=== PATIENT | male | born 1935 | race Caucasian/White ===

== ENCOUNTER 2017-01-06 00:17 | Inpatient (IN) | payer OTHER, MEDICARE ==
[~2017-01-06] VITALS: Ht 188 cm; Wt 84.7 kg
[~2017-01-06 00:17] MED LIST: AZIT250T74 PO; BUME1TAB PO; CARB200 PO; CLON1 PO; COMBAER INH; COUM6TAB PO; FLUO20SO3 PO; GUAI600 PO; LACT PO; MYCO200S PO; OMEP20CA5 PO; PRED20 PO; PROG1CAP PO; ROBIACUDC PO
[2017-01-06 00:53] VITALS: BP 180/79; PULSE 58; RESP 18; TEMP 98.3; O2SAT 98
[2017-01-06] MEDS ORDERED: OLANZapine ODT 10 MG TAB PO ONE (01:30)
[2017-01-06] MEDS ORDERED: CARB200T PO (01:38)
[2017-01-06] MEDS ORDERED: BUME1TAB PO (01:38)
[2017-01-06] MEDS ORDERED: PRAV80TA2 PO (01:38)
[2017-01-06] MEDS ORDERED: REST30CA PO (01:41)
[2017-01-06] MEDS ORDERED: TACR5 PO (01:41)
[2017-01-06] MEDS ORDERED: MYCO500 PO (01:41)
[2017-01-06] MEDS ORDERED: PRED-503 PO (01:41)
[2017-01-06] MEDS ORDERED: WARF-60 PO (01:41)
[2017-01-06] MEDS ORDERED: CLON1 PO (01:41)
[2017-01-06] MEDS ORDERED: FLUO20CA12 PO (01:41)
[2017-01-06 02:10] LABS: AUTOMATED NEUTROPHIL # 2.6 TH/MM3 (1.8-7.7); BASOPHIL % 0.4 % (0.0-2.0); EOSINOPHIL # 0.1 TH/MM3 (0-0.4); HEMATOCRIT 35.2 % (39.0-51.0); HEMO FLAGS DIFF FINAL; LYMPH % 17.8 % (9.0-44.0); LYMPHOCYTE # 0.7 TH/MM3 (1.0-4.8); MEAN CELL VOLUME 92.2 FL (80.0-100.0); MEAN CORPUSCULAR HEMOGLOBIN 29.6 PG (27.0-34.0); MONO % 14.7 % (0.0-8.0); NEUT % 65.1 % (16.0-70.0); PLATELET COUNT 160 TH/MM3 (150-450); RED BLOOD COUNT 3.82 MIL/MM3 (4.50-5.90); RED CELL DISTRIBUTION WIDTH 14.4 % (11.6-17.2); WHITE BLOOD COUNT 3.9 TH/MM3 (4.0-11.0)
--- NOTE | 2017-01-06 02:20 | PD ---
HPI Chief Complaint: Psychiatric Symptoms Time Seen by Provider: 00:43 Travel History International Travel<30 days: No Contact w/Intl Traveler<30days: No Traveled to known affect area: No History of Present Illness HPI Patient is a 81-year-old male with history of paranoid schizophrenia and depression who presents the emergency department under Beavers act. Per patient' s and daughter, whom is a nurse, patient has history of depression and paranoid schizophrenia. He has been compliant with all medications including Prozac, Klonopin and carbamazepine. Patient has been decompensating over the course of the last several weeks to months with increasing spells of agitation. He today woke up confused and has been acting "like a different person" per family. Stated that he wanted to hurt his and has been making very aggressive statements towards her. Stated to family that he wanted to kill himself. He wrote a note stating his wishes, for what family were supposed to do with his body when he passes away, describing that he wanted to be cremated. Patient has been having a fairly fixed delusion that his has been cheating on him and is "a whore" per patient. and daughter states that this has been a fairly fixed delusion for years but has been more bothersome as of late. Patient does have a history of renal transplant and is followed by Dr. Gonsalez of nephrology. He has been compliant with his antirejection medications. PFSH Past Medical History Autoimmune Disease: No Blood Disorders: No Anxiety: Yes Depression: Yes Heart Rhythm Problems: Yes (AT FIB) Cancer: Yes Cardiac Catheterization: Yes Cardiovascular Problems: Yes High Cholesterol: Yes Chest Pain: Yes Congestive Heart Failure: No COPD: Yes Coronary Artery Disease: Yes Diabetes: No Diminished Hearing: No Endocrine: No Gastrointestinal Disorders: Yes Glaucoma: No Genitourinary: Yes Headaches: Yes Hepatitis: No Hypertension: Yes Immune Disorder: No Musculoskeletal: No Neurologic: Yes Psychiatric: Yes Reproductive: No Respiratory: Yes Migraines: No Myocardial Infarction: No Radiation Therapy: Yes Renal Failure: Yes Seizures: Yes Sleep Apnea: Yes Tetanus Vaccination: Unknown PNEUMOCCOCAL Vaccine (Year): 1 Past Surgical History Abdominal Surgery: Yes Arteriovenous Shunt: No Body Medical Devices: AV FISTULA LEFT BICEP Cardiac Surgery: Yes (stent placement) Coronary Stent: Yes (SEES DR CALLEJAS) Genitourinary Surgery: Yes (R KIDNEY TRANSPLANT) Gynecologic Surgery: No Insulin Pump: No Neurologic Surgery: Yes Pacemaker: No Thoracic Surgery: No Other Surgery: Yes (Left AV fistula removed) Social History Alcohol Use: No Tobacco Use: No Substance Use: No Allergies-Medications (Allergen,Severity, Reaction): Coded Allergies: Levaquin (Verified Allergy, Severe, ANAPHYLAXIS, 01/06/17) Reported Meds & Prescriptions Reported Meds & Active Scripts Active Reported Warfarin 6 Mg Tab 6 Mg PO DAILY Restoril (Temazepam) 30 Mg Cap 30 Mg PO HS PRN Prograf (Tacrolimus) 5 Mg Cap 3 Mg PO BID Deltasone (Prednisone) 20 Mg Tab 5 Mg PO DAILY Cellcept (Mycophenolate Mofetil) 500 Mg Tab 1,000 Mg PO BID Fluoxetine (Fluoxetine HCl) 20 Mg Capsule 20 Mg PO DAILY Klonopin (Clonazepam) 1 Mg Tab 1 Mg PO DAILY Carbamazepine 200 Mg Tab 200 Mg PO DAILY Bumetanide 1 Mg Tab 1 Mg PO DAILY Pravastatin 80 Mg Tab 80 Mg PO DAILY Review of Systems Except as stated in HPI: all other systems reviewed are Neg Physical Exam Narrative GENERAL: Well-appearing Chinese elderly male in no acute distress SKIN: Focused skin assessment warm/dry. HEAD: Normocephalic. EYES: No scleral icterus. No injection or drainage. ENT: Mucous membranes pink and moist. NECK: Supple CARDIOVASCULAR: Regular rate and rhythm. RESPIRATORY: No accessory muscle use. GASTROINTESTINAL: Abdomen soft, non-tender, nondistended. MUSCULOSKELETAL: Normal gait NEUROLOGICAL: Awake and alert. Motor grossly within normal limits. Normal speech. PSYCHIATRIC: Euthymic mood and affect. Patient denies delusions, hallucinations , suicidal or homicidal ideation. Data Data Last Documented VS Vital Signs Date Time Temp Pulse Resp B/P Pulse Ox O2 Delivery O2 Flow Rate FiO2 01/06/17 00:53 98.3 58 18 180/79 98 Orders Complete Blood Count With Diff (01/06/17 00:44) Comprehensive Metabolic Panel (01/06/17 00:44) Thyroid Stimulating Hormone (01/06/17 00:44) Urinalysis - C+S If Indicated (01/06/17 00:44) Psych Screen (01/06/17 00:44) Drug Screen, Random Urine (01/06/17 00:44) Alcohol (Ethanol) (01/06/17 00:44) Olanzapine Odt (Zyprexa Zydis Odt) (01/06/17 01:30) Diet Regular Basic (01/06/17 Breakfast) Labs Laboratory Tests Test 01/06/17 01:51 White Blood Count 3.9 TH/MM3 Red Blood Count 3.82 MIL/MM3 Hemoglobin 11.3 GM/DL Hematocrit 35.2 % Mean Corpuscular Volume 92.2 FL Mean Corpuscular Hemoglobin 29.6 PG Mean Corpuscular Hemoglobin 32.0 % Concent Red Cell Distribution Width 14.4 % Platelet Count 160 TH/MM3 Mean Platelet Volume 8.7 FL Neutrophils (%) (Auto) 65.1 % Lymphocytes (%) (Auto) 17.8 % Monocytes (%) (Auto) 14.7 % Eosinophils (%) (Auto) 2.0 % Basophils (%) (Auto) 0.4 % Neutrophils # (Auto) 2.6 TH/MM3 Lymphocytes # (Auto) 0.7 TH/MM3 Monocytes # (Auto) 0.6 TH/MM3 Eosinophils # (Auto) 0.1 TH/MM3 Basophils # (Auto) 0.0 TH/MM3 CBC Comment DIFF FINAL Differential Comment Sodium Level 136 MEQ/L Potassium Level 3.9 MEQ/L Chloride Level 98 MEQ/L Carbon Dioxide Level 30.2 MEQ/L Anion Gap 8 MEQ/L Blood Urea Nitrogen 26 MG/DL Creatinine 1.31 MG/DL Estimat Glomerular Filtration 53 ML/MIN Rate Random Glucose 81 MG/DL Calcium Level 8.6 MG/DL Total Bilirubin 0.4 MG/DL Aspartate Amino Transf 16 U/L (AST/SGOT) Alanine Aminotransferase 13 U/L (ALT/SGPT) Alkaline Phosphatase 63 U/L Total Protein 7.2 GM/DL Albumin 3.6 GM/DL Thyroid Stimulating Hormone 1.630 uIU/ML 3rd Gen Ethyl Alcohol Level LESS THAN 3 MG/DL [facility] Medical Decision Making Medical Screen Exam Complete: Yes Emergency Medical Condition: Yes Medical Record Reviewed: Yes Differential Diagnosis 81-year-old male with history of depression and paranoid schizophrenia here as a Beavers act for increasing confusion, aggressive statements towards , delusions and statements of one in to kill himself, writing the note about his end-of-life wishes. Differential includes depression, suicidal ideation, dementia, schizophrenia, paranoid schizophrenia, drug-induced mood disorder, delirium Narrative Course Patient placed on monitor. Patient very cooperative throughout emergency department stay, however when his and daughter are present patient becomes quite agitated, yelling "they are all lying. She is a whore." Once family removed we were able to verbally de-escalate patient. He was given 10 mg of oral zydis. CBC, CMP, TSH, blood alcohol level unremarkable. Urinalysis and urine drug screen remains pending at the time this dictation. Patient medically clear for psychiatric evaluation. Diagnosis Primary Impression: Paranoid schizophrenia Additional Impression: Delusion Mariah Morris MD Jan 06, 2017 02:20
[2017-01-06 02:32] LABS: ANION GAP 8 MEQ/L (5-15); AST (GOT) 16 U/L (15-37); BICARBONATE 30.2 MEQ/L (21.0-32.0); BLOOD UREA NITROGEN 26 MG/DL (7-18); CHLORIDE 98 MEQ/L (98-107); GLOMERULAR FILTRATION RATE 53 ML/MIN (>89); POTASSIUM 3.9 MEQ/L (3.5-5.1); SODIUM (NA) 136 MEQ/L (136-145)
[2017-01-06 02:42] LABS: ALKALINE PHOSPHATASE 63 U/L (45-117); ALT (GPT) 13 U/L (12-78); TOTAL BILIRUBIN ADULT 0.4 MG/DL (0.2-1.0)
[2017-01-06 06:30] VITALS: BP 168/76; PULSE 60; RESP 20; O2SAT 96
[2017-01-06 08:39] LABS: BLOOD, URINE NEG (NEG); GLUCOSE,URINE NEG (NEG); KETONE, URINE NEG (NEG); NITRITE,URINE NEG (NEG); SQUAMOUS EPITHELIAL CELL URINE <1 /hpf (0-5); URINE COLOR LIGHT-YELLOW (YELLW/STRAW)
[2017-01-06 08:41] LABS: COMMENT (UR) CULT NOT INDICATED; CULTURE IF INDICATED CULT NOT INDICATED
[2017-01-06 08:46] LABS: AMPHETAMINE, URINE NEG (NEG); BARBITURATES, URINE NEG (NEG); COCAINE, URINE NEG (NEG)
[2017-01-06 10:00] VITALS: BP 160/72; PULSE 60; RESP 17; O2SAT 97
--- NOTE | 2017-01-06 13:45 | HHI.HP ---
Provisional Diagnosis Admission Date 01/06/2017 [place] I. 1. Adjustment disorder with disturbance of emotions and conduct Rule out dementia with behavioral disturbance +/- psychosis 2. History of schizophrenia 3. History of seizure disorder [place] II. Deferred [place] V. GAF is 20 presently Certification of Person's Competence To Provide Express and Informed Consent I have personally examined Bismark Frazier , a person being served at [facility] on, Jan 06, 2017 13:45. Express and informed consent means consent voluntarily given in writing, by a competent person, after sufficient explanation and disclosure of the subject matter involved to enable the person to make a knowing and willful decision without any element of force, fraud, deceit, duress, or other form of constraint or coercion. This person is 18 years of age or older, is not now known to be incompetent to consent to treatment with a guardian advocate, and does not have a health care surrogate or proxy currently making medical treatment decisions. I have found this person to be one of the following: [] Competent to provide express and informed consent, as defined above, for voluntary admission to this facility and is competent to provide express and informed consent for treatment. He/she has the consistent capacity to make well reasoned, willful, and knowing decisions concerning his or her medical or mental health treatment. The person fully and consistently understands the purpose of the admission for examination/placement and is fully capable of personally exercising all rights [place] [x] Incompetent to provide express and informed consent to voluntary admission, and this is incompetent to provide express and informed consent to treatment. The person must be transferred to involuntary status and a petition for a guardian advocate filed with the Circuit Court. [] Refusing to provide express and informed consent to voluntary admission but is competent to provide express and informed consent for treatment. The person must be discharged or transferred to involuntary status. Form shall be completed within 24 hours of a person's arrival at the receiving facility and filed in the clinical record of each person: 1. Admitted on a voluntary basis 2. Permitted to provide express and informed consent to his/her own treatment 3. Allowed to transfer from involuntary to voluntary status 4. Prior to permitting a person to consent to his or her own treatment after having been previously found incompetent to consent to treatment. History of Present Illness Capacity: Lacks Capacity HPI Mr. Frazier is an 81-year-old male [place] descent who has been brought into the ED under a Beavers act alleging that he made threats to suicide. Reviewing the electronic medical record, I see no prior psychiatric contact within our system. Patient seen and examined. Chart reviewed. On my examination today, the patient tends to minimize the circumstances of his presentation here. He says that he was making funerary arrangements and his misinterpreted what he was doing. He denies any suicidal ideation or homicidal ideation. He denies any audiovisual hallucinations. I can elicit no delusional beliefs. He does admit to feeling depressed from time to time but denies persistent low mood. No hypomanic or manic symptoms. The remainder of the psychiatric ROS is negative. Past psychiatric history: Patient reports that after the onset of seizure disorder he was started on Prozac and Klonopin for low mood. He denies a history of suicide attempts. Family history: Patient denies family history of mental illness. Chemical dependency history: The patient denies any abuse of drugs or alcohol. Social history: The patient is originally from [facility]. He lives with his . He has a high school equivalent education. He worked in construction. Denies any or legal history. He reports that he has a son and daughter , and that his daughter works here as a nurse. Obtain collateral from the patient's daughter, Suzi. She reports that the patient has a history of schizophrenia and seizure disorder, although the schizophrenia was diagnosed relatively late in life. She notes that after his seizures he will experience violent behavior, although he has been experiencing more generalized behavioral disturbance lately. She says that morning he took a seizure and was subsequently confused. He has been accusing his of having a boyfriend. He has been threatening to kill his and then himself. Daughter remains concerned about the patient's behavior and risk for suicide/violence. Review of Systems ROS Limitations: Poor Historian Except as stated in HPI: all other systems reviewed are Neg Past Psych History Psychological trauma history No reported trauma history Violence risk - others (6 mos) Indeterminate. Concern for elevated risk. Violence risk - self (6 mos) Indeterminate. Concern for elevated risk. Substance Abuse History Drugs/Alcohol past 12 months See above Past Family Social History Coded Allergies: Levaquin (Verified Allergy, Severe, ANAPHYLAXIS, 01/06/17) Past Medical History See electronic medical record Reported Medications Warfarin 6 Mg Tab6 Mg PO DAILY #30 TAB Ref 0 01/06/17 Temazepam (Restoril)30 Mg Cap30 Mg PO HS PRN (INSOMNIA) #30 CAP Ref 0 01/06/17 Tacrolimus (Prograf)5 Mg Cap3 Mg PO BID #60 CAP Ref 0 01/06/17 Prednisone (Deltasone)20 Mg Tab5 Mg PO DAILY #30 TAB Ref 0 01/06/17 Mycophenolate (Cellcept)500 Mg Tab1,000 Mg PO BID #120 TAB Ref 0 01/06/17 Fluoxetine 20 Mg [id number] Mg PO DAILY #30 CAP Ref 0 01/06/17 Clonazepam (Klonopin)1 Mg Tab1 Mg PO DAILY #60 TAB Ref 0 01/06/17 Carbamazepine 200 Mg [id number] Mg PO DAILY #60 TAB Ref 0 01/06/17 Bumetanide 1 Mg Tab1 Mg PO DAILY #30 TAB Ref 0 01/06/17 Pravastatin 80 Mg Tab80 Mg PO DAILY #30 TAB Ref 0 01/06/17 Patient's Strengths (min. 2) In a monitored setting. Verbally fluent. Physical Exam Physical exam completed by ED provider. On my examination today, the patient appears to be in no acute physical distress. No motor abnormalities noted. Labs and vitals reviewed: Vital Signs Vital Signs Date Time Temp Pulse Resp B/P Pulse Ox O2 Delivery O2 Flow Rate FiO2 01/06/17 10:00 60 17 160/72 97 Room Air 01/06/17 00:53 98.3 Lab Results Laboratory Tests Test 01/06/17 01/06/17 01:51 08:05 White Blood Count 3.9 TH/MM3 Red Blood Count 3.82 MIL/MM3 Hemoglobin 11.3 GM/DL Hematocrit 35.2 % Mean Corpuscular Volume 92.2 FL Mean Corpuscular Hemoglobin 29.6 PG Mean Corpuscular Hemoglobin 32.0 % Concent Red Cell Distribution Width 14.4 % Platelet Count 160 TH/MM3 Mean Platelet Volume 8.7 FL Neutrophils (%) (Auto) 65.1 % Lymphocytes (%) (Auto) 17.8 % Monocytes (%) (Auto) 14.7 % Eosinophils (%) (Auto) 2.0 % Basophils (%) (Auto) 0.4 % Neutrophils # (Auto) 2.6 TH/MM3 Lymphocytes # (Auto) 0.7 TH/MM3 Monocytes # (Auto) 0.6 TH/MM3 Eosinophils # (Auto) 0.1 TH/MM3 Basophils # (Auto) 0.0 TH/MM3 CBC Comment DIFF FINAL Differential Comment Sodium Level 136 MEQ/L Potassium Level 3.9 MEQ/L Chloride Level 98 MEQ/L Carbon Dioxide Level 30.2 MEQ/L Anion Gap 8 MEQ/L Blood Urea Nitrogen 26 MG/DL Creatinine 1.31 MG/DL Estimat Glomerular Filtration 53 ML/MIN Rate Random Glucose 81 MG/DL Calcium Level 8.6 MG/DL Total Bilirubin 0.4 MG/DL Aspartate Amino Transf 16 U/L (AST/SGOT) Alanine Aminotransferase 13 U/L (ALT/SGPT) Alkaline Phosphatase 63 U/L Total Protein 7.2 GM/DL Albumin 3.6 GM/DL Thyroid Stimulating Hormone 1.630 uIU/ML 3rd Gen Ethyl Alcohol Level LESS THAN 3 MG/DL Urine Color LIGHT-YELLOW Urine Turbidity CLEAR Urine pH 7.0 Urine Specific [place] 1.010 Urine Protein NEG mg/dL Urine Glucose (UA) NEG mg/dL Urine Ketones NEG mg/dL Urine Occult Blood NEG Urine Nitrite NEG Urine Bilirubin NEG Urine Urobilinogen LESS THAN 2.0 MG/DL Urine Leukocyte Esterase NEG Urine RBC 1 /hpf Urine WBC 1 /hpf Urine Squamous Epithelial <1 /hpf Cells Microscopic Urinalysis Comment CULT NOT INDICATED Urine Opiates Screen NEG Urine Barbiturates Screen NEG Urine Amphetamines Screen NEG Urine Benzodiazepines Screen NEG Urine Cocaine Screen NEG Urine Cannabinoids Screen NEG Mental Status Examination Patient is casually dressed. Patient is well groomed. Patient is awake and alert and oriented to person, place and date. His registration is 3 out of 3 in his recall is 0 out of 3 at 3 minutes. He is able to spell the word world forwards and backwards. He is able to name 2 items and repeat a phrase. No evidence of delirium. No motor abnormalities appreciated. Speech is within normal limits for rate, tone, volume. Language and fund of knowledge perhaps somewhat reduced for age. Focus and concentration intact. Memory grossly intact on clinical exam. Mood is occasionally depressed. Affect remains full and reactive. Thought processes fairly linear. No delusions elicited. Denies audiovisual hallucinations and does not appear internally stimulated. Denies suicidal or homicidal ideation, intent, or plan. Insight and judgment unclear. Assessment & Plan Problem List: (1) Adjustment disorder with mixed disturbance of emotions and conduct ICD Code: F43.25 Assessment & Plan This is an 81-year-old male with psychiatric history as detailed above who presents under a Beavers act. The patient tends to minimize circumstances of his presentation here, but his daughter gives collateral information indicating that his behavior has been increasingly disturbed of late. He also has been making threats against himself and his . Patient has a history of schizophrenia, but this was reportedly diagnosed late in life, and he does have comorbid seizure disorder. There is some subtle signs of neurocognitive impairment. I wonder about a possible oncoming dementia with behavioral disturbance. For the time being, I will give the patient had diagnosis of adjustment disorder with disturbance of emotions and conduct. The patient requires psychiatric admission at this time for safety, observation and stabilization. Admit inpatient. Involuntary status. I completed first opinion. Consult for second opinion. Request healthcare surrogate and guardian advocate. I'll consult the hospitalist for medical management. I will continue patient's general medical medications as ordered. Consult to neurology given patient's history of seizure disorder. PT consult. Seizure and fall precautions. I will continue the patient's Prozac and Klonopin. Low-dose Ativan as needed for anxiety, Cogentin as needed for EPS, Benadryl as needed for sleep. Vitals every shift. Counselor to see. Disposition planning. Estimated length of stay : 7-9 days. Discharge Planning Pending outcome of observation Request HC Surrog/Guard Advoc?: Yes Gurinder Medley MD Jan 06, 2017 13:45
[2017-01-06 14:00] VITALS: BP 154/77; PULSE 60; RESP 19; O2SAT 97
[2017-01-06] MEDS ORDERED: ALUMINUM/MAGNESIUM/SIMETH 30 ML CUP PO PRN (15:00)
[2017-01-06] MEDS ORDERED: ACETAMINOPHEN 325 MG TAB PO PRN (15:00)
[2017-01-06] MEDS ORDERED: MAGNESIUM HYDROXIDE SUSP 30 ML CUP PO PRN (15:00)
[2017-01-06] MEDS ORDERED: LORazepam 2 MG/ML VIAL IM PRN (15:00)
[2017-01-06] MEDS ORDERED: BENZTROPINE MESYLATE 2 MG/2 ML VIAL IM PRN (15:00)
[2017-01-06] MEDS ORDERED: LORazepam 0.5 MG TAB PO PRN (15:00)
[2017-01-06 15:18] VITALS: BP 157/73; PULSE 60; RESP 12; TEMP 98
--- NOTE | 2017-01-06 16:26 | PD.CONS ---
HPI Service [facility] Consult Requested By Primary Care Physician Unknown Diagnoses: History of Present Illness Past Family Social History Allergies: Coded Allergies: Levaquin (Verified Allergy, Severe, ANAPHYLAXIS, 01/06/17) Active Ordered Medications Physical Exam Vital Signs Vital Signs Date Time Temp Pulse Resp B/P Pulse Ox O2 Delivery O2 Flow Rate FiO2 01/06/17 15:18 98.0 60 12 157/73 01/06/17 14:00 60 19 154/77 97 Room Air 01/06/17 10:00 60 17 160/72 97 Room Air 01/06/17 06:30 60 20 168/76 96 Room Air 01/06/17 00:53 98.3 58 18 180/79 98 Laboratory Laboratory Tests Test 01/06/17 01/06/17 01:51 08:05 White Blood Count 3.9 Red Blood Count 3.82 Hemoglobin 11.3 Hematocrit 35.2 Mean Corpuscular Volume 92.2 Mean Corpuscular Hemoglobin 29.6 Mean Corpuscular Hemoglobin 32.0 Concent Red Cell Distribution Width 14.4 Platelet Count 160 Mean Platelet Volume 8.7 Neutrophils (%) (Auto) 65.1 Lymphocytes (%) (Auto) 17.8 Monocytes (%) (Auto) 14.7 Eosinophils (%) (Auto) 2.0 Basophils (%) (Auto) 0.4 Neutrophils # (Auto) 2.6 Lymphocytes # (Auto) 0.7 Monocytes # (Auto) 0.6 Eosinophils # (Auto) 0.1 Basophils # (Auto) 0.0 CBC Comment DIFF FINAL Differential Comment Sodium Level 136 Potassium Level 3.9 Chloride Level 98 Carbon Dioxide Level 30.2 Anion Gap 8 Blood Urea Nitrogen 26 Creatinine 1.31 Estimat Glomerular Filtration 53 Rate Random Glucose 81 Calcium Level 8.6 Total Bilirubin 0.4 Aspartate Amino Transf 16 (AST/SGOT) Alanine Aminotransferase 13 (ALT/SGPT) Alkaline Phosphatase 63 Total Protein 7.2 Albumin 3.6 Thyroid Stimulating Hormone 1.630 3rd Gen Ethyl Alcohol Level LESS THAN 3 Urine Color LIGHT-YELLOW Urine Turbidity CLEAR Urine pH 7.0 Urine Specific [place] 1.010 Urine Protein NEG Urine Glucose (UA) NEG Urine Ketones NEG Urine Occult Blood NEG Urine Nitrite NEG Urine Bilirubin NEG Urine Urobilinogen LESS THAN 2.0 Urine Leukocyte Esterase NEG Urine RBC 1 Urine WBC 1 Urine Squamous Epithelial <1 Cells Microscopic Urinalysis Comment CULT NOT INDICATED Urine Opiates Screen NEG Urine Barbiturates Screen NEG Urine Amphetamines Screen NEG Urine Benzodiazepines Screen NEG Urine Cocaine Screen NEG Urine Cannabinoids Screen NEG Result Diagram: 01/06/1715001/06/[id number] Lorrie Borges Jan 06, 2017 16:26 muscle groups. Normal speech. Laboratory Laboratory Tests Test 01/06/17 01/06/17 01:51 08:05 White Blood Count 3.9 Red Blood Count 3.82 Hemoglobin 11.3 Hematocrit 35.2 Mean Corpuscular Volume 92.2 Mean Corpuscular Hemoglobin 29.6 Mean Corpuscular Hemoglobin 32.0 Concent Red Cell Distribution Width 14.4 Platelet Count 160 Mean Platelet Volume 8.7 Neutrophils (%) (Auto) 65.1 Lymphocytes (%) (Auto) 17.8 Monocytes (%) (Auto) 14.7 Eosinophils (%) (Auto) 2.0 Basophils (%) (Auto) 0.4 Neutrophils # (Auto) 2.6 Lymphocytes # (Auto) 0.7 Monocytes # (Auto) 0.6 Eosinophils # (Auto) 0.1 Basophils # (Auto) 0.0 CBC Comment DIFF FINAL Differential Comment Sodium Level 136 Potassium Level 3.9 Chloride Level 98 Carbon Dioxide Level 30.2 Anion Gap 8 Blood Urea Nitrogen 26 Creatinine 1.31 Estimat Glomerular Filtration 53 Rate Random Glucose 81 Calcium Level 8.6 Total Bilirubin 0.4 Aspartate Amino Transf 16 (AST/SGOT) Alanine Aminotransferase 13 (ALT/SGPT) Alkaline Phosphatase 63 Total Protein 7.2 Albumin 3.6 Thyroid Stimulating Hormone 1.630 3rd Gen Ethyl Alcohol Level LESS THAN 3 Urine Color LIGHT-YELLOW Urine Turbidity CLEAR Urine pH 7.0 Urine Specific [place] 1.010 Urine Protein NEG Urine Glucose (UA) NEG Urine Ketones NEG Urine Occult Blood NEG Urine Nitrite NEG Urine Bilirubin NEG Urine Urobilinogen LESS THAN 2.0 Urine Leukocyte Esterase NEG Urine RBC 1 Urine WBC 1 Urine Squamous Epithelial <1 Cells Microscopic Urinalysis Comment CULT NOT INDICATED Urine Opiates Screen NEG Urine Barbiturates Screen NEG Urine Amphetamines Screen NEG Urine Benzodiazepines Screen NEG Urine Cocaine Screen NEG Urine Cannabinoids Screen NEG Result Diagram: 01/06/1715001/06/17150 Lorrie Borges Jan 06, 2017 16:26
--- NOTE | 2017-01-06 17:23 | PD.CONS ---
HPI Service [facility] Hospitalists Consult Requested By Psychiatric services Reason for Consult Medical management Primary Care Physician Unknown Diagnoses: History of Present Illness Written by Lorrie Borges PA-C acting as scribe for Dr. Rowan on 01/06/17 at 16 :24. This is a 81-year-old male with a past medical history significant for paranoid schizophrenia, hypertension, atrial fibrillation on warfarin, dyslipidemia, coronary artery disease status post previous cardiac stent implants, history of prostate cancer status post radiation therapy, seizures and obstructive sleep apnea who presented to the ED under Beavers act due to increasing spells of agitation and confusion and making aggressive statements towards his that he wish to hurt her and that he wanted to kill himself. Patient is now admitted to the inpatient psychiatric unit and hospitalist services have been consulted for medical management. Patient seen and examined today. Patient denies any complaints. States he is feeling well. He reports that his appetite is not the best but believes that is due to his renal diet. He denies any chest pain, wheezing or shortness of breath. Denies any fever or chills. Denies any nausea, vomiting or abdominal pain. Review of Systems Except as stated in HPI: all other systems reviewed are Neg Past Family Social History Allergies: Coded Allergies: Levaquin (Verified Allergy, Severe, ANAPHYLAXIS, 01/06/17) Past Medical History HTN Atrial fibrillation Anxiety HLD CAD with previous cardiac stent implant GLORIA Seizure History of prostate cancer History of colon cancer Paranoid schizophrenia Depression Past Surgical History Right kidney transplant Colon cancer resection Cardiac stent 14 years ago Reported Medications Warfarin 6 Mg Tab 6 Mg PO DAILY Restoril (Temazepam) 30 Mg Cap 30 Mg PO HS PRN Prograf (Tacrolimus) 5 Mg Cap 3 Mg PO BID Deltasone (Prednisone) 20 Mg Tab 5 Mg PO DAILY Cellcept (Mycophenolate Mofetil) 500 Mg Tab 1,000 Mg PO BID Fluoxetine (Fluoxetine HCl) 20 Mg Capsule 20 Mg PO DAILY Klonopin (Clonazepam) 1 Mg Tab 1 Mg PO DAILY Carbamazepine 200 Mg Tab 200 Mg PO DAILY Bumetanide 1 Mg Tab 1 Mg PO DAILY Pravastatin 80 Mg Tab 80 Mg PO DAILY Active Ordered Medications Current Medications Medications (Trade) Dose Ordered Sig/Mar Route Start Time Stop Time Status Last Admin (Bumetanide) 1 mg DAILY PO 01/07/17 09:00 (TEGretol) 200 mg DAILY PO 01/07/17 09:00 (KlonoPIN) 1 mg DAILY PO 01/07/17 09:00 (PROzac) 20 mg DAILY PO 01/07/17 09:00 (Cellcept) 1,000 mg BID PO 01/06/17 21:00 (Pravachol) 80 mg DAILY PO 01/07/17 09:00 (Deltasone) 5 mg DAILY PO 01/07/17 09:00 (Prograf) 3 mg DAILY@06,18 PO 01/06/17 18:00 (Coumadin) 6 mg DAILY@16 PO 01/07/17 16:00 (Restoril) 30 mg HS PRN PO 01/06/17 21:00 (Ativan) 0.5 mg Q12HR PRN PO 01/06/17 15:00 (Ativan Inj) 0.5 mg Q12HR PRN IM 01/06/17 15:00 (Benadryl) 50 mg HS PRN PO 01/06/17 21:00 (Tylenol) 650 mg Q4H PRN PO 01/06/17 15:00 (Milk Of Magnesia Liq) 30 ml DAILY PRN PO 01/06/17 15:00 (Mag-Al Plus Susp Liq) 30 ml Q6H PRN PO 01/06/17 15:00 (Habitrol 21 Mg Patch.24 Hr) 1 patch DAILY T-DERMAL 01/07/17 09:00 (Cogentin) 1 mg Q12HR PRN PO 01/06/17 21:00 (Cogentin Inj) 1 mg Q12HR PRN IM 01/06/17 15:00 Miscellaneous Information 1 DAILY T-DERMAL 01/07/17 09:00 Family History Parents from natural causes in her 80s Social History Patient reports a history of tobacco use of pack per week for 20 years but quit more than 40 years ago. He denies any alcohol consumption or illicit drug use. Physical Exam Vital Signs Vital Signs Date Time Temp Pulse Resp B/P Pulse Ox O2 Delivery O2 Flow Rate FiO2 01/06/17 15:18 98.0 60 12 157/73 01/06/17 14:00 60 19 154/77 97 Room Air 01/06/17 10:00 60 17 160/72 97 Room Air 01/06/17 06:30 60 20 168/76 96 Room Air 01/06/17 00:53 98.3 58 18 180/79 98 Physical Exam GENERAL: This is a well-nourished, well-developed patient, in no apparent distress. Awake and alert. SKIN: No rashes, ecchymoses or lesions. Cool and dry. HEAD: Atraumatic. Normocephalic. No temporal or scalp tenderness. EYES: Pupils equal round and reactive. Extraocular motions intact. No scleral icterus. No injection or drainage. ENT: Nose without bleeding, purulent drainage. Throat without erythema, tonsillar hypertrophy or exudate. Uvula midline. Airway patent. NECK: Trachea midline. No lymphadenopathy. Supple, nontender, no meningeal signs. CARDIOVASCULAR: Regular rate and rhythm without murmurs, gallops, or rubs. RESPIRATORY: Clear to auscultation. Breath sounds equal bilaterally. No wheezes , rales, or rhonchi. GASTROINTESTINAL: Abdomen soft, non-tender, nondistended. No hepato-splenomegaly , or palpable masses. No guarding. MUSCULOSKELETAL: Extremities without clubbing, cyanosis, or edema. No joint tenderness, effusion, or edema noted. No calf tenderness. NEUROLOGICAL: Awake and alert. Able to move all extremities. Normal speech. Laboratory Laboratory Tests Test 01/06/17 01/06/17 01:51 08:05 White Blood Count 3.9 Red Blood Count 3.82 Hemoglobin 11.3 Hematocrit 35.2 Mean Corpuscular Volume 92.2 Mean Corpuscular Hemoglobin 29.6 Mean Corpuscular Hemoglobin 32.0 Concent Red Cell Distribution Width 14.4 Platelet Count 160 Mean Platelet Volume 8.7 Neutrophils (%) (Auto) 65.1 Lymphocytes (%) (Auto) 17.8 Monocytes (%) (Auto) 14.7 Eosinophils (%) (Auto) 2.0 Basophils (%) (Auto) 0.4 Neutrophils # (Auto) 2.6 Lymphocytes # (Auto) 0.7 Monocytes # (Auto) 0.6 Eosinophils # (Auto) 0.1 Basophils # (Auto) 0.0 CBC Comment DIFF FINAL Differential Comment Sodium Level 136 Potassium Level 3.9 Chloride Level 98 Carbon Dioxide Level 30.2 Anion Gap 8 Blood Urea Nitrogen 26 Creatinine 1.31 Estimat Glomerular Filtration 53 Rate Random Glucose 81 Calcium Level 8.6 Total Bilirubin 0.4 Aspartate Amino Transf 16 (AST/SGOT) Alanine Aminotransferase 13 (ALT/SGPT) Alkaline Phosphatase 63 Total Protein 7.2 Albumin 3.6 Thyroid Stimulating Hormone 1.630 3rd Gen Ethyl Alcohol Level LESS THAN 3 Urine Color LIGHT-YELLOW Urine Turbidity CLEAR Urine pH 7.0 Urine Specific [place] 1.010 Urine Protein NEG Urine Glucose (UA) NEG Urine Ketones NEG Urine Occult Blood NEG Urine Nitrite NEG Urine Bilirubin NEG Urine Urobilinogen LESS THAN 2.0 Urine Leukocyte Esterase NEG Urine RBC 1 Urine WBC 1 Urine Squamous Epithelial <1 Cells Microscopic Urinalysis Comment CULT NOT INDICATED Urine Opiates Screen NEG Urine Barbiturates Screen NEG Urine Amphetamines Screen NEG Urine Benzodiazepines Screen NEG Urine Cocaine Screen NEG Urine Cannabinoids Screen NEG Result Diagram: 01/06/17 0151 01/06/17 0151 Assessment and Plan Assessment and Plan 81-year-old male with a past medical history significant for paranoid schizophrenia, hypertension, atrial fibrillation on warfarin, dyslipidemia, coronary artery disease status post previous cardiac stent implants, history of prostate cancer status post radiation therapy, seizures and obstructive sleep apnea who presented to the ED under Beavers act due to increasing spells of agitation and confusion and making aggressive statements towards his that he wish to hurt her and that he wanted to kill himself. Patient is now admitted to the inpatient psychiatric unit and hospitalist services have been consulted for medical management. Paranoid schizophrenia Depression/anxiety Management per psychiatric team Atrial fibrillation Continue patient's home dose of Coumadin Monitor INR. Pharmacy to dose. Hypertension HLD Resume patient's home dose of statin therapy Resume home dose of Bumex Obtain fasting lipid panel ZARA Creatinine 1.31 possible CKD, unknown baseline avoid nephrotoxic agents Encourage po intake Monitor BMP History of kidney transplant Obtain Tacrolimus level Continue patient's home dose of Prograf 3 mg twice a day and Mycophenolate 1000mg BID Seizure disorder Resume patient's home dose of Tegretol DVT prophylaxis Patient is ambulatory and is low risk Other chronic medical conditions include CAD and GLORIA: Stable at this time will continue home medications as indicated. Thank you very kindly for this consult. We'll continue to follow along with you. This note was transcribed by etta Borges PA-C. I, Dr. Felicitas Rowan personally performed the history, physical exam, and medical decision making; and confirmed the accuracy of the information in the transcribed note. Authenticated by Dr. Felicitas Rowan on 01/06/17 at 16:24. Discussed Condition With Patient and nursing staff Lorrie Borges Jan 06, 2017 17:23 Felicitas Rowan MD Jan 06, 2017 18:19
[2017-01-06 17:58] VITALS: BP 157/73; PULSE 60; TEMP 97.1; O2SAT 98
[2017-01-06] MEDS: TACROLIMUS 1 MG CAP PO SCH (18:38)
[2017-01-06 19:20] LABS: INTERNATIONAL NORMALIZED RATIO 2.2 RATIO; PROTHROMBIN TIME - PATIENT 25.2 SEC (9.8-11.6)
[2017-01-06] MEDS ORDERED: TEMAZEPAM 15 MG CAP PO PRN (21:00)
[2017-01-06] MEDS ORDERED: BENZTROPINE MESYLATE 1 MG TAB PO PRN (21:00)
[2017-01-06] MEDS: MYCOPHENOLATE MOFETIL 500 MG TAB PO SCH (21:28)
[2017-01-07 05:20] VITALS: BP 148/73; PULSE 64; RESP 18; TEMP 99; O2SAT 95
[2017-01-07] MEDS: TACROLIMUS 1 MG CAP PO SCH ×2 (05:49→17:34)
[2017-01-07] MEDS: NICOTINE 21 MG/24 HR PATCH T-DERMAL SCH (09:00)
[2017-01-07] MEDS: REMOVE OLD PATCH T-DERMAL SCH (09:00)
[2017-01-07] MEDS: predniSONE 5 MG TAB PO SCH (09:20)
[2017-01-07] MEDS: FLUoxetine HCL 20 MG CAP PO SCH (09:20)
[2017-01-07] MEDS: carBAMazepine 200 MG TAB PO SCH (09:21)
[2017-01-07] MEDS: MYCOPHENOLATE MOFETIL 500 MG TAB PO SCH ×2 (09:21→21:00)
[2017-01-07] MEDS: PRAVASTATIN SOD 80 MG TAB PO SCH (09:21)
[2017-01-07] MEDS: BUMETANIDE 1 MG TAB PO SCH (09:21)
[2017-01-07] MEDS: clonazePAM 1 MG TAB PO SCH (09:21)
[2017-01-07 10:24] LABS: AUTOMATED NEUTROPHIL # 3.5 TH/MM3 (1.8-7.7); BASOPHIL % 0.3 % (0.0-2.0); EOSINOPHIL # 0.1 TH/MM3 (0-0.4); EOSINOPHIL % 1.4 % (0.0-4.0); HEMATOCRIT 36.9 % (39.0-51.0); HEMO FLAGS DIFF FINAL; LYMPH % 13.1 % (9.0-44.0); LYMPHOCYTE # 0.7 TH/MM3 (1.0-4.8); MEAN CELL VOLUME 92.5 FL (80.0-100.0); MEAN CORPUSCULAR HEMOGLOBIN 29.6 PG (27.0-34.0); MEAN CORPUSCULAR HGB CONC 32.1 % (32.0-36.0); MONO % 13.6 % (0.0-8.0); NEUT % 71.6 % (16.0-70.0); PLATELET COUNT 156 TH/MM3 (150-450); RED BLOOD COUNT 3.99 MIL/MM3 (4.50-5.90); RED CELL DISTRIBUTION WIDTH 14.4 % (11.6-17.2)
[2017-01-07 10:28] LABS: INTERNATIONAL NORMALIZED RATIO 1.6 RATIO; PROTHROMBIN TIME - PATIENT 18.6 SEC (9.8-11.6)
--- NOTE | 2017-01-07 10:38 | HHI.PR ---
Subjective Remarks Follow up on patient with atrial fibrillation, CAD. Patient seen and examined today. Patient denies any complaints at this time. States he feels well. Denies any fever or chills. Denies any chest pain or SOB. Denies any N/V or abdominal pain. Objective Vitals Vital Signs Date Time Temp Pulse Resp B/P Pulse Ox O2 Delivery O2 Flow Rate FiO2 01/07/17 05:20 99.0 64 18 148/73 95 01/06/17 17:58 97.1 60 157/73 98 01/06/17 15:18 98.0 60 12 157/73 01/06/17 14:00 60 19 154/77 97 Room Air I/O 01/06/17 01/06/17 01/06/17 01/07/17 01/07/17 01/07/17 07:00 15:00 23:00 07:00 15:00 23:00 Intake Total 240 ml 480 ml 360 ml Balance 240 ml 480 ml 360 ml Intake Oral 240 ml 480 ml 360 ml # Voids 1 1 Result Diagram: 01/07/1705 01/06/17 0151 Objective Remarks GENERAL: This is a well-nourished, well-developed patient, in no apparent distress. Awake and alert. Lying in hospital bed. Appears comfortable. SKIN: No rashes, ecchymoses or lesions. Cool and dry. HEAD: Atraumatic. Normocephalic. EYES: Pupils equal round and reactive. No scleral icterus. No injection or drainage. ENT: Nose without bleeding, purulent drainage. Airway patent. NECK: Trachea midline. MMM. CARDIOVASCULAR: Regular rate and rhythm without murmurs, gallops, or rubs. RESPIRATORY: Clear to auscultation. Breath sounds equal bilaterally. No wheezes , rales, or rhonchi. GASTROINTESTINAL: Abdomen soft, non-tender, nondistended. No hepato-splenomegaly , or palpable masses. No guarding. MUSCULOSKELETAL: Extremities without clubbing, cyanosis, or edema. No joint tenderness, effusion, or edema noted. No calf tenderness. NEUROLOGICAL: Awake and alert. Able to move all extremities. Normal speech. Medications and IVs Current Medications Medications (Trade) Dose Ordered Sig/Mar Route Start Time Stop Time Status Last Admin (Bumetanide) 1 mg DAILY PO 01/07/17 09:00 01/07/17 09:21 (TEGretol) 200 mg DAILY PO 01/07/17 09:00 01/07/17 09:21 (KlonoPIN) 1 mg DAILY PO 01/07/17 09:00 01/07/17 09:21 (PROzac) 20 mg DAILY PO 01/07/17 09:00 01/07/17 09:20 (Cellcept) 1,000 mg BID PO 01/06/17 21:00 01/07/17 09:21 (Pravachol) 80 mg DAILY PO 01/07/17 09:00 01/07/17 09:21 (Deltasone) 5 mg DAILY PO 01/07/17 09:00 01/07/17 09:20 (Prograf) 3 mg DAILY@06,18 PO 01/06/17 18:00 01/07/17 05:49 (Coumadin) 6 mg DAILY@16 PO 01/07/17 16:00 (Restoril) 30 mg HS PRN PO 01/06/17 21:00 (Ativan) 0.5 mg Q12HR PRN PO 01/06/17 15:00 (Ativan Inj) 0.5 mg Q12HR PRN IM 01/06/17 15:00 (Benadryl) 50 mg HS PRN PO 01/06/17 21:00 (Tylenol) 650 mg Q4H PRN PO 01/06/17 15:00 (Milk Of Magnesia Liq) 30 ml DAILY PRN PO 01/06/17 15:00 (Mag-Al Plus Susp Liq) 30 ml Q6H PRN PO 01/06/17 15:00 (Habitrol 21 Mg Patch.24 Hr) 1 patch DAILY T-DERMAL 01/07/17 09:00 (Cogentin) 1 mg Q12HR PRN PO 01/06/17 21:00 (Cogentin Inj) 1 mg Q12HR PRN IM 01/06/17 15:00 Miscellaneous Information 1 1 DAILY T-DERMAL 01/07/17 09:00 (Coumadin Consult Pharmacy) 0 ml @ 0 mls/hr UNSCH OTHER 01/06/17 19:30 (Coumadin Booklet) 1 ONCE ONCE OTHER 01/07/17 16:00 01/07/17 16:01 A/P Assessment and Plan 81-year-old male with a past medical history significant for paranoid schizophrenia, hypertension, atrial fibrillation on warfarin, dyslipidemia, coronary artery disease status post previous cardiac stent implants, history of prostate cancer status post radiation therapy, seizures and obstructive sleep apnea who presented to the ED under Beavers act due to increasing spells of agitation and confusion and making aggressive statements towards his that he wish to hurt her and that he wanted to kill himself. Patient is now admitted to the inpatient psychiatric unit and hospitalist services have been consulted for medical management. Paranoid schizophrenia Depression/anxiety Management per psychiatric team Atrial fibrillation Continue patient's home dose of Coumadin INR 1.6. Monitor INR. Pharmacy to dose. Hypertension HLD Continue patient's home dose of statin therapy Continue home dose of Bumex Obtain fasting lipid panel - pending ZARA Creatinine 1.31 possible CKD, unknown baseline avoid nephrotoxic agents Encourage po intake Monitor BMP - today's lab pending History of kidney transplant Obtain Tacrolimus level - pending Continue patient's home dose of Prograf 3 mg twice a day and Mycophenolate 1000mg BID Seizure disorder Continue patient's home dose of Tegretol DVT prophylaxis Patient is ambulatory and is low risk Other chronic medical conditions include CAD and GLORIA: Stable at this time will continue home medications as indicated. Lorrie Borges Jan 07, 2017 10:38
[2017-01-07 10:53] LABS: ANION GAP 6 MEQ/L (5-15); BICARBONATE 31.6 MEQ/L (21.0-32.0); BLOOD UREA NITROGEN 22 MG/DL (7-18); CHLORIDE 99 MEQ/L (98-107); GLOMERULAR FILTRATION RATE 57 ML/MIN (>89); POTASSIUM 4.4 MEQ/L (3.5-5.1); SODIUM (NA) 137 MEQ/L (136-145)
[2017-01-07 10:56] LABS: HDL CHOLESTEROL 64.5 MG/DL (40.0-60.0); LDL CHOLESTEROL 113 MG/DL (0-99)
--- NOTE | 2017-01-07 13:47 | HHI.PYPN ---
Subjective Remarks Patient discussed with treatment team, patient seen with nurse Freida medical students Darcy and Dina patient calm pleasant with us showing no significant insight into his behaviors at all that led to this hospitalization. Though he did very reluctantly and with much coaching acknowledge that he may have a low dyscontrol after having a seizure. The list difficult to ascertain the type of seizure that he is experiencing. We'll attempt to reach patient's family to arrange a meeting next 1-2 days. We also are having neurologist and hospitalist consult with us. For now continue treatment Dr. Medley has initially seen this patient done the initial H&P. He initiated a Beavers act and did first opinion petition supporting that Beavers act his dictation reviewed and agreed with. My assessment as above. At this time I agree with Dr. Medley patient does meet criteria for involuntary psychiatric hospitalization under the Beavers act. Thus will cosign second opinion petition supporting Beavers act Review of Systems Except as stated in HPI: all other systems reviewed are Neg Objective Alert: Yes [place]: Person, Place, Date Mood: Anxious, Calm Affect: Euthymic, Labile (mildly) Memory Intact: Comment (poor) Hallucinations: Other (denies) Delusions: Yes Delusion Type: Paranoid (focusing on ) Suicidal: Ideation (denies) Homicidal: Ideation (denies) Insight/Judgment Poor Labs Test 01/06/17 01/07/17 18:59 09:05 Prothrombin Time 25.2 SEC 18.6 SEC Prothromb Time International 2.2 RATIO 1.6 RATIO Ratio White Blood Count 5.0 TH/MM3 Red Blood Count 3.99 MIL/MM3 Hemoglobin 11.8 GM/DL Hematocrit 36.9 % Mean Corpuscular Volume 92.5 FL Mean Corpuscular Hemoglobin 29.6 PG Mean Corpuscular Hemoglobin 32.1 % Concent Red Cell Distribution Width 14.4 % Platelet Count 156 TH/MM3 Mean Platelet Volume 8.7 FL Neutrophils (%) (Auto) 71.6 % Lymphocytes (%) (Auto) 13.1 % Monocytes (%) (Auto) 13.6 % Eosinophils (%) (Auto) 1.4 % Basophils (%) (Auto) 0.3 % Neutrophils # (Auto) 3.5 TH/MM3 Lymphocytes # (Auto) 0.7 TH/MM3 Monocytes # (Auto) 0.7 TH/MM3 Eosinophils # (Auto) 0.1 TH/MM3 Basophils # (Auto) 0.0 TH/MM3 CBC Comment DIFF FINAL Differential Comment Sodium Level 137 MEQ/L Potassium Level 4.4 MEQ/L Chloride Level 99 MEQ/L Carbon Dioxide Level 31.6 MEQ/L Anion Gap 6 MEQ/L Blood Urea Nitrogen 22 MG/DL Creatinine 1.22 MG/DL Estimat Glomerular Filtration 57 ML/MIN Rate Random Glucose 102 MG/DL Calcium Level 8.7 MG/DL Triglycerides Level 85 MG/DL Cholesterol Level 194 MG/DL LDL Cholesterol 113 MG/DL HDL Cholesterol 64.5 MG/DL Cholesterol/HDL Ratio 3.00 RATIO Tacrolimus (Prograf) Level 19.8 NG/ML Vitals/IOs Vital Signs Date Time Temp Pulse Resp B/P Pulse Ox O2 Delivery O2 Flow Rate FiO2 01/07/17 05:20 99.0 64 18 148/73 95 01/06/17 14:00 Room Air Intake and Output 01/06/17 01/06/17 01/06/17 07:59 15:59 23:59 Intake Total 240 ml 480 ml Balance 240 ml 480 ml Assessment & Plan Problem List: (1) 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 Will meet with patient 's family tomorrow morning at 9 AM. Will have consultants related to his behaviors with neurology and hospitalist. Justification for Cont. Inpt. At this time patient will decompensate then placed in the lower level of care Discharge Planning To be determined Request HC Surrog/Guard Advoc?: Yes Bismark Maldonado MD Jan 07, 2017 13:47
[2017-01-07 16:23] LABS: HEMOGLOBIN A1a 1.1 %; HEMOGLOBIN A1b 0.8 %; HEMOGLOBIN Ao 84.8 %; HEMOGLOBIN F 0.9 %; HEMOGLOBIN LA1C 2.3 %; HEMOGLOBIN P3 5.9 %
[2017-01-07] MEDS: WARFARIN SOD 6 MG TAB PO SCH (16:27)
[2017-01-07 18:12] VITALS: BP 132/63; PULSE 72; RESP 16; TEMP 97.8; O2SAT 97
[2017-01-08 06:09] VITALS: BP 151/72; PULSE 67; RESP 18; TEMP 98.2; O2SAT 95
[2017-01-08] MEDS: TACROLIMUS 1 MG CAP PO SCH ×2 (06:13→17:01)
--- NOTE | 2017-01-08 07:05 | MB ---
cc: BRENDA GARCES M.D. DATE OF CONSULTATION 01/07/2017 REASON FOR CONSULTATION Seizure HISTORY OF PRESENT ILLNESS Mr. Frazier is an 81-year-old man who states he has had seizures for 20 at 25 years. He states his last seizure was Saturday. He states they are usually brought on by stress or anxiety. Apparently he does lose consciousness during these episodes. He gets a seizure about once every eight months according to his history. PAST MEDICAL HISTORY He has a history of: 1. Prostate cancer 2. Colon cancer 3. History of paranoid schizophrenia. 4. Depression 5. Kidney transplant 6. Colon cancer resection 7. Cardiac stent MEDICATIONS His medications at home: 1. Coumadin 6 mg daily 1. Restoril 2. Prograf 5 mg b.i.d. 3. Deltasone 20 mg daily 4. CellCept 5. Fluoxetine 6. Klonopin 7. Carbamazepine 200 mg daily 8. Pravastatin NEUROLOGIC EXAMINATION VITAL SIGNS: Blood pressure 148/73, pulse 64, respirations 18, temperature 99 degrees. Higher cortical functions, he is alert, oriented, follows commands. Speech is normal. Cranial nerves are intact. On motor exam, he has got 5/5 strength in the muscle groups in the upper and lower extremities. There is no drift. Fine motor skills normal. Reflexes symmetric. Gait is normal. IMPRESSION History of seizure. RECOMMENDATIONS He is on a low dose of Tegretol, recommend checking a Tegretol level to be sure it is therapeutic. MD DERIC Gurrola/POOJA /4:59 PM /6:49 AM
[2017-01-08 08:13] LABS: INTERNATIONAL NORMALIZED RATIO 1.4 RATIO; PROTHROMBIN TIME - PATIENT 16.1 SEC (9.8-11.6)
[2017-01-08] MEDS: predniSONE 5 MG TAB PO SCH (09:00)
[2017-01-08] MEDS: NICOTINE 21 MG/24 HR PATCH T-DERMAL SCH (09:00)
[2017-01-08] MEDS: MYCOPHENOLATE MOFETIL 500 MG TAB PO SCH ×2 (09:00→20:59)
[2017-01-08] MEDS: clonazePAM 1 MG TAB PO SCH (09:00)
[2017-01-08] MEDS: PRAVASTATIN SOD 80 MG TAB PO SCH (09:00)
[2017-01-08] MEDS: carBAMazepine 200 MG TAB PO SCH ×2 (09:00→20:59)
[2017-01-08] MEDS: REMOVE OLD PATCH T-DERMAL SCH (09:00)
[2017-01-08] MEDS: BUMETANIDE 1 MG TAB PO SCH (09:00)
[2017-01-08] MEDS: FLUoxetine HCL 20 MG CAP PO SCH (09:00)
--- NOTE | 2017-01-08 15:32 | HHI.PYPN ---
Subjective Remarks Met with patient's daughter, , son and [id number]. They gave further history of patient's having a somewhat paranoid type personality through much of his life also somewhat intimidating. And labile. Ears show no significant behavior since being on the unit, his compliant medication. Patient Tegretol level drawn 01/07 is 3.2C medication adjustments will increase Tegretol to 200 mg a.m. 40 mg at bedtime and recheck blood level in 3 days. We also are change in patient's diet to a renal diet Review of Systems Except as stated in HPI: all other systems reviewed are Neg Objective Alert: Yes [place]: Person, Place, Date Mood: Anxious, Calm Affect: Euthymic, Labile (mildly) Memory Intact: Comment (poor) Hallucinations: Other (denies) Delusions: Yes Delusion Type: Paranoid (focusing on ) Suicidal: Ideation (denies) Homicidal: Ideation (denies) Insight/Judgment Poor Labs Test 01/08/17 06:42 Prothrombin Time 16.1 SEC Prothromb Time International 1.4 RATIO Ratio Vitals/IOs Vital Signs Date Time Temp Pulse Resp B/P Pulse Ox O2 Delivery O2 Flow Rate FiO2 01/08/17 06:09 98.2 67 18 151/72 95 01/06/17 14:00 Room Air Intake and Output 01/07/17 01/07/17 01/07/17 07:59 15:59 23:59 Intake Total 360 ml 840 ml 1830 ml Balance 360 ml 840 ml 1830 ml Assessment & Plan Problem List: (1) 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 We 'll conversation with patient's family showed history of some mood type lability irritability and paranoia. Please see medication adjustments above Justification for Cont. Inpt. At this time patient will decompensate the place to the lower level of care Discharge Planning To be determined Request HC Surrog/Guard Advoc?: Yes Bismark Maldonado MD Jan 08, 2017 15:31
[2017-01-08] MEDS: WARFARIN SOD 6 MG TAB PO SCH (16:00)
[2017-01-08] MEDS: risperiDONE 1 MG TAB PO SCH (20:59)
[2017-01-08] MEDS ORDERED: carBAMazepine 200 MG TAB PO SCH (21:00)
[2017-01-09 05:07] VITALS: BP 105/59; PULSE 67; RESP 15; TEMP 98; O2SAT 94
[2017-01-09] MEDS: TACROLIMUS 1 MG CAP PO SCH ×2 (05:22→17:59)
[2017-01-09 08:37] LABS: INTERNATIONAL NORMALIZED RATIO 1.6 RATIO; PROTHROMBIN TIME - PATIENT 18.1 SEC (9.8-11.6)
[2017-01-09] MEDS: NICOTINE 21 MG/24 HR PATCH T-DERMAL SCH (09:00)
[2017-01-09] MEDS: REMOVE OLD PATCH T-DERMAL SCH (09:00)
[2017-01-09] MEDS: MYCOPHENOLATE MOFETIL 500 MG TAB PO SCH ×2 (09:16→20:40)
[2017-01-09] MEDS: BUMETANIDE 1 MG TAB PO SCH (09:16)
[2017-01-09] MEDS: clonazePAM 1 MG TAB PO SCH (09:16)
[2017-01-09] MEDS: risperiDONE 1 MG TAB PO SCH ×2 (09:16→20:39)
[2017-01-09] MEDS: predniSONE 5 MG TAB PO SCH (09:16)
[2017-01-09] MEDS: FLUoxetine HCL 20 MG CAP PO SCH (09:16)
[2017-01-09] MEDS: PRAVASTATIN SOD 80 MG TAB PO SCH (09:16)
[2017-01-09] MEDS: carBAMazepine 200 MG TAB PO SCH ×2 (09:16→20:40)
--- NOTE | 2017-01-09 10:58 | HHI.PYPN ---
Subjective Remarks Patient seen in his room with nurse Maye and family practice resident addis, chart review, patient calm cooperative compliant medications. Sedated good visit with family yesterday. Question when he can go home. Patient is scheduled for [place] [facility] tomorrow. For now continue treatment Review of Systems Except as stated in HPI: all other systems reviewed are Neg Objective Alert: Yes [place]: Person, Place, Date Mood: Anxious, Calm Affect: Euthymic, Labile (mildly) Memory Intact: Comment (poor) Hallucinations: Other (denies) Delusions: Yes Delusion Type: Paranoid (focusing on ) Suicidal: Ideation (denies) Homicidal: Ideation (denies) Insight/Judgment Poor Labs Test 01/09/17 08:12 Prothrombin Time 18.1 SEC Prothromb Time International 1.6 RATIO Ratio Vitals/IOs Vital Signs Date Time Temp Pulse Resp B/P Pulse Ox O2 Delivery O2 Flow Rate FiO2 01/09/17 05:07 98.0 67 15 105/59 94 01/06/17 14:00 Room Air Intake and Output 01/08/17 01/08/17 01/08/17 07:59 15:59 23:59 Intake Total 480 ml 990 ml Balance 480 ml 990 ml Assessment & Plan Problem List: (1) 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 Compliant medication. Now continue treatment Justification for Cont. Inpt. At this time patient may decompensate is not placed in an appropriate level of care Discharge Planning To be determined Request HC Surrog/Guard Advoc?: Yes Bismark Maldonado MD Jan 09, 2017 10:58
[2017-01-09] MEDS: WARFARIN SOD 6 MG TAB PO SCH (16:00)
[2017-01-09 21:44] VITALS: BP 112/55; PULSE 78; RESP 16; TEMP 98.2; O2SAT 96
[2017-01-10] MEDS: TACROLIMUS 1 MG CAP PO SCH ×2 (05:40→17:47)
[2017-01-10 06:02] VITALS: BP 118/56; PULSE 70; RESP 18; TEMP 98.7; O2SAT 99
[2017-01-10 08:46] LABS: INTERNATIONAL NORMALIZED RATIO 2.2 RATIO; PROTHROMBIN TIME - PATIENT 24.8 SEC (9.8-11.6)
[2017-01-10] MEDS: REMOVE OLD PATCH T-DERMAL SCH (09:00)
[2017-01-10] MEDS: NICOTINE 21 MG/24 HR PATCH T-DERMAL SCH (09:00)
[2017-01-10] MEDS: FLUoxetine HCL 20 MG CAP PO SCH (09:07)
[2017-01-10] MEDS: carBAMazepine 200 MG TAB PO SCH ×2 (09:07→20:29)
[2017-01-10] MEDS: MYCOPHENOLATE MOFETIL 500 MG TAB PO SCH ×2 (09:07→20:29)
[2017-01-10] MEDS: BUMETANIDE 1 MG TAB PO SCH (09:08)
[2017-01-10] MEDS: clonazePAM 1 MG TAB PO SCH (09:08)
[2017-01-10] MEDS: PRAVASTATIN SOD 80 MG TAB PO SCH (09:08)
[2017-01-10] MEDS: predniSONE 5 MG TAB PO SCH (09:08)
[2017-01-10] MEDS: risperiDONE 1 MG TAB PO SCH ×2 (09:08→20:29)
--- NOTE | 2017-01-10 11:23 | HHI.PYPN ---
Subjective Remarks Patient seen in [place]. Prior to patient coming to [place] his and daughter testifying in court and frontal [employer] Enrike. They describe patient's somewhat long-term behavior of anger outbursts paranoia and threatening behavior. They then left the room patient came in for the remainder of the [facility] court hearing. Patient was calm cooperative during it did not have any type of an outburst. I did concur with family's statements about their fear of his behavior and outbursts. [employer] En[employer] approved for the hospitalization of this patient under the Beavers act with to be guardian advocate. Patient has been compliant with medications. The be Tegretol level drawn tomorrow morning Review of Systems Except as stated in HPI: all other systems reviewed are Neg Objective Alert: Yes [place]: Person, Place, Date Mood: Anxious, Calm Affect: Euthymic, Labile (mildly) Memory Intact: Comment (poor) Hallucinations: Other (denies) Delusions: Yes Delusion Type: Paranoid (focusing on ) Suicidal: Ideation (denies) Homicidal: Ideation (denies) Insight/Judgment Poor Labs Test 01/10/17 07:56 Prothrombin Time 24.8 SEC Prothromb Time International 2.2 RATIO Ratio Vitals/IOs Vital Signs Date Time Temp Pulse Resp B/P Pulse Ox O2 Delivery O2 Flow Rate FiO2 01/10/17 06:02 98.7 70 18 118/56 99 01/06/17 14:00 Room Air Intake and Output 01/09/17 01/09/17 01/10/17 08:00 16:00 00:00 Intake Total 240 ml 480 ml Balance 240 ml 480 ml Assessment & Plan Problem List: (1) 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 Is been compliant with medications. For now continue treatment. Patient has been retained by [employer] Enrike with 5 to be guardian advocate Justification for Cont. Inpt. This time patient may decompensate if placed in a lower level of care Discharge Planning To be determined Request HC Surrog/Guard Advoc?: Yes Bismark Maldonado MD Jan 10, 2017 11:23
[2017-01-10] MEDS: WARFARIN SOD 5 MG TAB PO SCH (16:00)
--- NOTE | 2017-01-10 17:04 | HHI.PR ---
Subjective Remarks Follow up on patient with atrial fibrillation, CAD. Patient seen and examined today. Pt denied heart palpitations. He reported infrequent shortness of breath, but is not bothered by it at this time. He said rest will "make things better." Patient denies any complaints at this time. Pt denied fever, chills, body aches, cough, chest pain, N/V or abdominal pain. Per RN (Katherine) no acute issues noted overnight or since start of shift. Objective Vitals Vital Signs Date Time Temp Pulse Resp B/P Pulse Ox O2 Delivery O2 Flow Rate FiO2 01/10/17 06:02 98.7 70 18 118/56 99 01/09/17 21:44 98.2 78 16 112/55 96 I/O 01/09/17 01/09/17 01/09/17 01/10/17 01/10/17 01/10/17 06:59 14:59 22:59 06:59 14:59 22:59 Intake Total 240 ml 480 ml 840 ml Balance 240 ml 480 ml 840 ml Intake Oral 240 ml 480 ml 240 ml Oral Supplement 600 ml # Voids 1 2 1 Result Diagram: 01/07/1790401/07/17904 Objective Remarks GENERAL: Pt encountered laying a bed, NAD. SKIN: Warm and dry. HEAD: Normocephalic. EYES: No scleral icterus. No injection or drainage. NECK: Supple, trachea midline. No lymphadenopathy. CARDIOVASCULAR: Regular rate and irregularly irregular rhythm without murmurs, gallops, or rubs. RESPIRATORY: Breath sounds equal bilaterally. No accessory muscle use. GASTROINTESTINAL: Abdomen soft, non-tender, nondistended. MUSCULOSKELETAL: No cyanosis, or edema. BACK: Nontender without obvious deformity. No CVA tenderness. Medications and IVs Current Medications Medications (Trade) Dose Ordered Sig/Mar Route Start Time Stop Time Status Last Admin (Bumetanide) 1 mg DAILY PO 01/07/17 09:00 01/10/17 09:08 (KlonoPIN) 1 mg DAILY PO 01/07/17 09:00 01/10/17 09:08 (PROzac) 20 mg DAILY PO 01/07/17 09:00 01/10/17 09:07 (Cellcept) 1,000 mg BID PO 01/06/17 21:00 01/10/17 09:07 (Pravachol) 80 mg DAILY PO 01/07/17 09:00 01/10/17 09:08 (Deltasone) 5 mg DAILY PO 01/07/17 09:00 01/10/17 09:08 (Prograf) 3 mg DAILY@06,18 PO 01/06/17 18:00 01/10/17 05:40 (Restoril) 30 mg HS PRN PO 01/06/17 21:00 (Ativan) 0.5 mg Q12HR PRN PO 01/06/17 15:00 (Ativan Inj) 0.5 mg Q12HR PRN IM 01/06/17 15:00 (Benadryl) 50 mg HS PRN PO 01/06/17 21:00 (Tylenol) 650 mg Q4H PRN PO 01/06/17 15:00 01/07/17 16:31 (Milk Of Magnesia Liq) 30 ml DAILY PRN PO 01/06/17 15:00 (Mag-Al Plus Susp Liq) 30 ml Q6H PRN PO 01/06/17 15:00 (Habitrol 21 Mg Patch.24 Hr) 1 patch DAILY T-DERMAL 01/07/17 09:00 (Cogentin) 1 mg Q12HR PRN PO 01/06/17 21:00 (Cogentin Inj) 1 mg Q12HR PRN IM 01/06/17 15:00 Miscellaneous Information 1 1 DAILY T-DERMAL 01/07/17 09:00 (Coumadin Consult Pharmacy) 0 ml @ 0 mls/hr UNSCH OTHER 01/06/17 19:30 (risperDAL) 1 mg BID PO 01/08/17 21:00 01/10/17 09:08 (TEGretol) 200 mg DAILY PO 01/09/17 09:00 01/10/17 09:07 (TEGretol) 400 mg HS PO 01/08/17 21:00 01/09/17 20:40 (Coumadin) 5 mg DAILY@16 PO 01/10/17 16:00 Urinary Catheter: No A/P Assessment and Plan 81-year-old male with a past medical history significant for paranoid schizophrenia, hypertension, atrial fibrillation on warfarin, dyslipidemia, coronary artery disease status post previous cardiac stent implants, history of prostate cancer status post radiation therapy, seizures and obstructive sleep apnea who presented to the ED under Beavers act due to increasing spells of agitation and confusion and making aggressive statements towards his that he wish to hurt her and that he wanted to kill himself. Patient is now admitted to the inpatient psychiatric unit and hospitalist services have been consulted for medical management. INR improved 2.2. LDL 113 HDL 64.5 Total cholesterol 194.triglycerides 85: Continue Pravachol. Patient stable at this time. Will sign off. Please reconsult us if future issues arise. Paranoid schizophrenia Depression/anxiety -Management per psychiatric team Atrial fibrillation -Continue patient's home dose of Coumadin -INR 1.6.-->2.2 -Monitor INR. Pharmacy to dose. Hypertension HLD -Continue patient's home dose of statin therapy -Continue home dose of Bumex -Fasting lipid panel - LDL 113 HDL 64.5 Total cholesterol 194.triglycerides 85 ZARA -Creatinine 1.31 -possible CKD, unknown baseline -avoid nephrotoxic agents -Encourage po intake -Monitor BMP - today's lab pending History of kidney transplant -Obtain Tacrolimus level - 19.8 -Continue patient's home dose of Prograf 3 mg twice a day and Mycophenolate 1000mg BID Seizure disorder -Continue patient's home dose of Tegretol DVT prophylaxis -Patient is ambulatory and is low risk Other chronic medical conditions include CAD and GLORIA: Stable at this time will continue home medications as indicated. Discussedwith pt, Rn, and Dr. Rowan. Discharge Planning Ongoing. Obed Salinas Jr. Jan 10, 2017 17:03
[2017-01-10 19:19] VITALS: BP 133/68; PULSE 67; RESP 16; TEMP 97.7; O2SAT 98
[2017-01-11 05:59] VITALS: BP 149/75; PULSE 74; RESP 16; TEMP 98.1; O2SAT 98
[2017-01-11] MEDS: TACROLIMUS 1 MG CAP PO SCH ×2 (06:21→18:00)
[2017-01-11] MEDS: NICOTINE 21 MG/24 HR PATCH T-DERMAL SCH (09:00)
[2017-01-11] MEDS: REMOVE OLD PATCH T-DERMAL SCH (09:00)
[2017-01-11] MEDS: PRAVASTATIN SOD 80 MG TAB PO SCH (09:11)
[2017-01-11] MEDS: FLUoxetine HCL 20 MG CAP PO SCH (09:11)
[2017-01-11] MEDS: MYCOPHENOLATE MOFETIL 500 MG TAB PO SCH ×2 (09:12→22:07)
[2017-01-11] MEDS: clonazePAM 1 MG TAB PO SCH (09:12)
[2017-01-11] MEDS: BUMETANIDE 1 MG TAB PO SCH (09:13)
[2017-01-11] MEDS: risperiDONE 1 MG TAB PO SCH ×2 (09:13→22:07)
[2017-01-11] MEDS: carBAMazepine 200 MG TAB PO SCH ×2 (09:13→22:07)
[2017-01-11] MEDS: predniSONE 5 MG TAB PO SCH (09:13)
--- NOTE | 2017-01-11 14:49 | HHI.PYPN ---
Subjective Remarks Patient seen in room with medical student Deepthi. Compliant medications. Patient did visit with his today. Appears to have gone well was no difficulty with him as she was leaving. There is some decrease in his vigilance and irritability. For now continue treatment. Review of Systems Except as stated in HPI: all other systems reviewed are Neg Objective Alert: Yes [place]: Person, Place, Date Mood: Anxious, Calm Affect: Euthymic, Labile (mildly) Memory Intact: Comment (poor) Hallucinations: Other (denies) Delusions: Yes Delusion Type: Paranoid (focusing on ) Suicidal: Ideation (denies) Homicidal: Ideation (denies) Insight/Judgment Poor Vitals/IOs Vital Signs Date Time Temp Pulse Resp B/P Pulse Ox O2 Delivery O2 Flow Rate FiO2 01/11/17 05:59 98.1 74 16 149/75 98 Intake and Output 01/10/17 01/10/17 01/11/17 08:00 16:00 00:00 Intake Total 240 ml 600 ml 720 ml Balance 240 ml 600 ml 720 ml Assessment & Plan Problem List: (1) 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 For now continue treatment Justification for Cont. Inpt. At this time patient may decompensate if not placed in an appropriate level of care Discharge Planning To be determined Request HC Surrog/Guard Advoc?: Yes Bismark Maldonado MD Jan 11, 2017 14:49
[2017-01-11 15:26] LABS: PROTHROMBIN TIME - PATIENT 34.4 SEC (9.8-11.6)
[2017-01-11] MEDS: WARFARIN SOD 5 MG TAB PO SCH (15:53)
[2017-01-11 16:17] VITALS: BP 124/66; PULSE 70; RESP 18; TEMP 97.4; O2SAT 96
[2017-01-11] MEDS: diphenhydrAMINE HCL 50 MG CAP PO PRN (22:07)
[2017-01-12] MEDS: TACROLIMUS 1 MG CAP PO SCH ×3 (05:47→18:17)
[2017-01-12 06:00] VITALS: BP 131/63; PULSE 67; RESP 16; TEMP 97.7; O2SAT 95
[2017-01-12] MEDS: REMOVE OLD PATCH T-DERMAL SCH (09:00)
[2017-01-12] MEDS: FLUoxetine HCL 20 MG CAP PO SCH (09:00)
[2017-01-12] MEDS: NICOTINE 21 MG/24 HR PATCH T-DERMAL SCH (09:00)
[2017-01-12 09:39] LABS: INTERNATIONAL NORMALIZED RATIO 2.1 RATIO; PROTHROMBIN TIME - PATIENT 23.4 SEC (9.8-11.6)
[2017-01-12] MEDS: MYCOPHENOLATE MOFETIL 500 MG TAB PO SCH ×2 (10:04→21:33)
[2017-01-12] MEDS: clonazePAM 1 MG TAB PO SCH (10:04)
[2017-01-12] MEDS: risperiDONE 1 MG TAB PO SCH ×2 (10:04→21:32)
[2017-01-12] MEDS: carBAMazepine 200 MG TAB PO SCH ×2 (10:04→21:33)
[2017-01-12] MEDS: predniSONE 5 MG TAB PO SCH (10:04)
[2017-01-12] MEDS: PRAVASTATIN SOD 80 MG TAB PO SCH (10:05)
[2017-01-12] MEDS: BUMETANIDE 1 MG TAB PO SCH (10:06)
[2017-01-12] MEDS: WARFARIN SOD 5 MG TAB PO SCH (18:17)
[2017-01-12] MEDS: diphenhydrAMINE HCL 50 MG CAP PO PRN (21:33)
--- NOTE | 2017-01-12 21:37 | HHI.PYPN ---
Subjective Remarks Pt seen and discussed with staff. Pt has been calm and cooperative with care. No behavioral problems. Compliant [facility] medications. Objective Alert: Yes [place]: Person, Place Mood: Calm Affect: Restricted Memory Intact: Comment (poor) Hallucinations: Other (denies) Delusions: Yes Delusion Type: Paranoid Suicidal: Ideation (denies) Homicidal: Ideation (denies) Insight/Judgment poor Labs Test 01/12/17 07:55 Prothrombin Time 23.4 SEC Prothromb Time International 2.1 RATIO Ratio Vitals/IOs Vital Signs Date Time Temp Pulse Resp B/P Pulse Ox O2 Delivery O2 Flow Rate FiO2 01/12/17 06:00 97.7 67 16 131/63 95 Intake and Output 01/11/17 01/11/17 01/12/17 08:00 16:00 00:00 Intake Total 240 ml 1200 ml 720 ml Balance 240 ml 1200 ml 720 ml Assessment & Plan Problem List: (1) Adjustment disorder with mixed disturbance of emotions and conduct ICD Code: F43.25 (2) Mild cognitive disorder ICD Code: F09 Assessment & Plan Continue current tx plan. Estimated LOS: days Justification for Cont. Inpt. impairments in reality testing Request HC Surrog/Guard Advoc?: Yes Lawanda Murrieta MD Jan 12, 2017 21:37
[2017-01-13 06:00] VITALS: BP 110/52; PULSE 67; RESP 17; TEMP 98.4; O2SAT 96
[2017-01-13] MEDS: TACROLIMUS 1 MG CAP PO SCH ×2 (06:43→18:07)
[2017-01-13] MEDS: REMOVE OLD PATCH T-DERMAL SCH (09:00)
[2017-01-13] MEDS: NICOTINE 21 MG/24 HR PATCH T-DERMAL SCH (09:00)
[2017-01-13] MEDS: risperiDONE 1 MG TAB PO SCH ×2 (09:07→21:53)
[2017-01-13] MEDS: carBAMazepine 200 MG TAB PO SCH ×2 (09:07→21:53)
[2017-01-13] MEDS: MYCOPHENOLATE MOFETIL 500 MG TAB PO SCH ×2 (09:07→21:53)
[2017-01-13] MEDS: predniSONE 5 MG TAB PO SCH (09:07)
[2017-01-13] MEDS: clonazePAM 1 MG TAB PO SCH (09:07)
[2017-01-13] MEDS: FLUoxetine HCL 20 MG CAP PO SCH (09:08)
[2017-01-13] MEDS: BUMETANIDE 1 MG TAB PO SCH (09:08)
[2017-01-13] MEDS: PRAVASTATIN SOD 80 MG TAB PO SCH (09:08)
[2017-01-13 12:23] LABS: INTERNATIONAL NORMALIZED RATIO 1.7 RATIO; PROTHROMBIN TIME - PATIENT 18.9 SEC (9.8-11.6)
--- NOTE | 2017-01-13 16:24 | HHI.PYPN ---
Subjective Remarks Pt seen and discussed with staff. He has been pleasant and cooperative with care. He admitted to RN that he made statements to hurting himself during argument with . He reports that his mood is improving and he slept much better last night. No SI/HI. Compliant with medications. Objective Alert: Yes [place]: Person, Place, Date Mood: Calm Affect: Appropriate Memory Intact: Comment (poor) Hallucinations: Other (denies) Delusions: No Delusion Type: Other (none) Suicidal: Ideation (denies) Homicidal: Ideation (denies) Insight/Judgment limited Labs Test 01/13/17 11:15 Prothrombin Time 18.9 SEC Prothromb Time International 1.7 RATIO Ratio Vitals/IOs Vital Signs Date Time Temp Pulse Resp B/P Pulse Ox O2 Delivery O2 Flow Rate FiO2 01/13/17 06:00 98.4 67 17 110/52 96 Intake and Output 01/12/17 01/12/17 01/13/17 08:00 16:00 00:00 Intake Total 960 ml Balance 960 ml Assessment & Plan Problem List: (1) 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 Continue current tx plan. Estimated LOS: days Justification for Cont. Inpt. risk of decompensation. Request HC Surrog/Guard Advoc?: Yes Lawanda Murrieta MD Jan 13, 2017 16:24
[2017-01-13] MEDS: WARFARIN SOD 6 MG TAB PO SCH (16:53)
[2017-01-13 18:57] VITALS: BP 112/63; PULSE 72; RESP 18; TEMP 97.4; O2SAT 98
[2017-01-14] MEDS: TACROLIMUS 1 MG CAP PO SCH ×2 (05:47→18:09)
[2017-01-14 05:48] VITALS: BP 137/65; PULSE 61; RESP 16; TEMP 98.4
[2017-01-14] MEDS: NICOTINE 21 MG/24 HR PATCH T-DERMAL SCH (09:00)
[2017-01-14] MEDS: REMOVE OLD PATCH T-DERMAL SCH (09:00)
[2017-01-14] MEDS: carBAMazepine 200 MG TAB PO SCH ×2 (10:03→21:04)
[2017-01-14] MEDS: MYCOPHENOLATE MOFETIL 500 MG TAB PO SCH ×2 (10:03→21:04)
[2017-01-14] MEDS: FLUoxetine HCL 20 MG CAP PO SCH (10:03)
[2017-01-14] MEDS: PRAVASTATIN SOD 80 MG TAB PO SCH (10:03)
[2017-01-14] MEDS: clonazePAM 1 MG TAB PO SCH (10:03)
[2017-01-14] MEDS: predniSONE 5 MG TAB PO SCH (10:04)
[2017-01-14] MEDS: BUMETANIDE 1 MG TAB PO SCH (10:04)
[2017-01-14] MEDS: risperiDONE 1 MG TAB PO SCH ×2 (10:04→21:04)
[2017-01-14 12:17] LABS: INTERNATIONAL NORMALIZED RATIO 1.7 RATIO; PROTHROMBIN TIME - PATIENT 19.6 SEC (9.8-11.6)
--- NOTE | 2017-01-14 12:34 | HHI.PYPN ---
Subjective Remarks Patient discussed with treatment team. Chart reviewed. Tegretol level on 01/11 is 10.7. Patient seen on unit visiting with his . is very pleased with her 's progress. He also demanding calm cooperative and pleasant. She feels she is ready for discharge and would like to see him discharge tomorrow. If patient does well overnight I would agree with that. Review of Systems Except as stated in HPI: all other systems reviewed are Neg Objective Alert: Yes [place]: Person, Place, Date Mood: Calm Affect: Appropriate Memory Intact: Comment (poor) Hallucinations: Other (denies) Delusions: No Delusion Type: Other (none) Suicidal: Ideation (denies) Homicidal: Ideation (denies) Insight/Judgment Poor Labs Test 01/14/17 10:29 Prothrombin Time 19.6 SEC Prothromb Time International 1.7 RATIO Ratio Vitals/IOs Vital Signs Date Time Temp Pulse Resp B/P Pulse Ox O2 Delivery O2 Flow Rate FiO2 01/14/17 05:48 98.4 61 16 137/65 01/13/17 18:57 98 Intake and Output 01/13/17 01/13/17 01/14/17 08:00 16:00 00:00 Intake Total 1800 ml Balance 1800 ml Assessment & Plan Problem List: (1) 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 It appears to be having no problems with his medications. Tegretol level of 10.7 drawn on 01/11. If all goes well today consider discharge tomorrow to his family Justification for Cont. Inpt. At this time patient may decompensate if not placed at an appropriate level of care Discharge Planning To be determined consider discharge tomorrow to family Request HC Surrog/Guard Advoc?: Yes Bismark Maldonado MD Jan 14, 2017 12:34
--- NOTE | 2017-01-14 13:11 | PD.TTN ---
Patient Problems 1. Discharge planning 2. Medication compliance 3. Knowledge deficit 4. Lack of coping skills Progress Toward Goals Provider Input: Dr. Maldonado's treatment team met to discuss patient's treatment plan, discharge, and medication. Patient's will remain on unit. Patient is medication compliant. Nurse Input: Patient's nurse Zonia RN reports patient stating he did not want to go outside since it was only for an hour. Patient talkative this morning. Medication compliant, seclusive, calm. Psych Therapist Input: Patient seen in dayroom with his . Patient presented calm, pleasant, socialable, affect appropriate. Patient's speech was clear, organized, and appropriate. Patient is medication compliant. Patient did not present internally stimulated or with any delusional content. Patient denies suicidal and homicidal ideation. Occupational Therapist Input: Alejandrina LIZARRAGA reports patient does not attend groups. Opal Maddox [facility] Jan 14, 2017 13:11
[2017-01-14] MEDS: WARFARIN SOD 6 MG TAB PO SCH (16:26)
[2017-01-14 18:17] VITALS: BP 151/76; PULSE 73; RESP 18; TEMP 98.2; O2SAT 98
[2017-01-14] MEDS: diphenhydrAMINE HCL 50 MG CAP PO PRN (21:04)
[2017-01-15] MEDS: TACROLIMUS 1 MG CAP PO SCH (05:31)
[2017-01-15 05:40] VITALS: BP 130/60; PULSE 82; RESP 16; TEMP 98.4; O2SAT 94
[2017-01-15 07:50] LABS: INTERNATIONAL NORMALIZED RATIO 1.9 RATIO; PROTHROMBIN TIME - PATIENT 22.1 SEC (9.8-11.6)
[2017-01-15] MEDS ORDERED: CLON1 PO (09:00)
[2017-01-15] MEDS ORDERED: PRAV80TA PO (09:00)
[2017-01-15] MEDS ORDERED: COUM6TAB PO (09:00)
[2017-01-15] MEDS ORDERED: PRED5TAB PO (09:00)
[2017-01-15] MEDS ORDERED: RISP1 PO (09:00)
[2017-01-15] MEDS ORDERED: TACR1 PO (09:00)
[2017-01-15] MEDS ORDERED: FLUO20CA12 PO (09:00)
[2017-01-15] MEDS: NICOTINE 21 MG/24 HR PATCH T-DERMAL SCH (09:00)
[2017-01-15] MEDS ORDERED: MYCO500 PO (09:00)
[2017-01-15] MEDS ORDERED: CARB200T PO (09:00)
[2017-01-15] MEDS ORDERED: BUME1TAB PO (09:00)
[2017-01-15] MEDS: REMOVE OLD PATCH T-DERMAL SCH (09:00)
--- NOTE | 2017-01-15 09:10 | HHI.DS ---
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 Frazier is an 81-year-old male [place] descent who has been brought into the ED under a Beavers act alleging that he made threats to suicide. Reviewing the electronic medical record, I see no prior psychiatric contact within our system. Patient seen and examined. Chart reviewed. On my examination today, the patient tends to minimize the circumstances of his presentation here. He says that he was making funerary arrangements and his misinterpreted what he was doing. He denies any suicidal ideation or homicidal ideation. He denies any audiovisual hallucinations. I can elicit no delusional beliefs. He does admit to feeling depressed from time to time but denies persistent low mood. No hypomanic or manic symptoms. The remainder of the psychiatric ROS is negative. Past psychiatric history: Patient reports that after the onset of seizure disorder he was started on Prozac and Klonopin for low mood. He denies a history of suicide attempts. Family history: Patient denies family history of mental illness. Chemical dependency history: The patient denies any abuse of drugs or alcohol. Social history: The patient is originally from [facility] [place] [facility]. He lives with his . He has a high school equivalent education. He worked in construction. Denies any or legal history. He reports that he has a son and daughter , and that his daughter works here as a nurse. Obtain collateral from the patient's daughter, Suzi. She reports that the patient has a history of schizophrenia and seizure disorder, although the schizophrenia was diagnosed relatively late in life. She notes that after his seizures he will experience violent behavior, although he has been experiencing more generalized behavioral disturbance lately. She says that morning he took a seizure and was subsequently confused. He has been accusing his of having a boyfriend. He has been threatening to kill his and then himself. Daughter remains concerned about the patient's behavior and risk for suicide/violence. Tobacco Use In Past 30 Days: No Tobacco Past 30 Days Alcohol Use: Never Hospital Course Patient initially showed the irritability paranoia and mild confusion that led to hospitalization. However he also showed compliance with his medication. With the addition of the Tegretol and the Respinol his anger irritability and lability she gradually softened. There were meetings with the patient's family who were concerned about his volatility is paranoia towards his . However past visits with his of been quite good loving and supportive he has shown calm this inappropriateness. Behaviors have markedly improved. His does feel safe with him coming home feels as long as remains on his medication has appropriate follow-up she is willing to take him back home. Patient Tegretol level is 10.7 on 600 mg daily of Tegretol. Is compliant with his Resporal 1 mg twice a day. Thus patient be discharged today to his family, Rx 1 month, follow-up [facility] for medication management and counseling Results Blood Pressure 130 / 60 Vital Signs Date Time Temp Pulse Resp B/P Pulse Ox O2 Delivery O2 Flow Rate FiO2 01/15/17 05:40 98.4 82 16 130/60 94 Laboratory Tests Test 01/13/17 01/14/17 01/15/17 11:15 10:29 06:55 Prothrombin Time 18.9 SEC 19.6 SEC 22.1 SEC (9.8-11.6) (9.8-11.6) (9.8-11.6) Summary of Procedures None done Pending results at discharge: No Medications # of Antipsychotic meds at D/C: 1 Approp Antipsych med options 1 - Minimum of three failed multiple trials of monotherapy. 2 - Documented plan to taper to monotherapy due to previous use of multiple meds OR cross-taper in progress at D/C. 3 - Documentation of augmentation of Clozapine. 4 - Justification other than those listed in allowable values 1-3, document here : Discharge Discharge Date: Jan 15, 2017 Discharge Diagnosis: (1) Adjustment disorder with mixed disturbance of emotions and conduct Diagnosis: Principal ICD Code: F43.25 (2) Mild cognitive disorder Diagnosis: Secondary ICD Code: F09 Mental Status Exam at Disch Alert oriented white male, he is normoactive, his mood is euthymic good range and intensity of his affect. Speech rate and rhythm within normal limits though no formal thought disorders. No auditory or visual hallucinations. No delusions. Insight and judgment is poor to fair. Cognition grossly intact Pt Condition on Discharge: Stable Discharge Disposition: Discharge Home Discharge Instructions Diet Instructions: Renal Failure Diet Activities you can perform: Regular-No Restrictions Scheduled Appointment: [facility] Appointment Date: Jan 21, 2017 Appointment Time: 10:45am Discharge Time > 30 minutes Discharge/Advance Care Plan Health Problems: (1) Adjustment disorder with mixed disturbance of emotions and conduct (2) Mild cognitive disorder Goals to promote your health * To prevent worsening of your condition and complications * To maintain your health at the optimal level Directions to meet your goals Take your medications as prescribed Follow your dietary instruction Follow activity as directed Keep your appointments as scheduled Take your immunizations and boosters as scheduled If your symptoms worsen call your PCP, if no PCP go to Urgent Care Center or Emergency Room For 24/12 questions related to your inpatient stay or results of tests pending at discharge, please contact Dr. Bismark Maldonado at Smoking is Dangerous to Your Health. Avoid second hand smoking Bismark Maldonado MD Jan 15, 2017 09:10
[2017-01-15] MEDS: FLUoxetine HCL 20 MG CAP PO SCH (09:58)
[2017-01-15] MEDS: MYCOPHENOLATE MOFETIL 500 MG TAB PO SCH (09:58)
[2017-01-15] MEDS: PRAVASTATIN SOD 80 MG TAB PO SCH (09:58)
[2017-01-15] MEDS: risperiDONE 1 MG TAB PO SCH (09:59)
[2017-01-15] MEDS: carBAMazepine 200 MG TAB PO SCH (09:59)
[2017-01-15] MEDS: predniSONE 5 MG TAB PO SCH (09:59)
[2017-01-15] MEDS: BUMETANIDE 1 MG TAB PO SCH (09:59)
[2017-01-15] MEDS: clonazePAM 1 MG TAB PO SCH (09:59)
== END 2017-01-15 12:35 | disposition home or self-care (01) | DRG 882 ==
LOC: NEPE 00:17 → NEDA 13:44 → H250 14:50
PROVIDERS: ADMIT Psychiatry & Neurology Psychiatry; ATTEND Psychiatry & Neurology Psychiatry
DX: F43.25 Adjustment disorder with mixed disturbance of emotions and conduct (principal); T86.12 Kidney transplant failure; I48.91 Unspecified atrial fibrillation; J44.9 Chronic obstructive pulmonary disease, unspecified; G40.909 Epilepsy, unspecified, not intractable, without status epilepticus; R45.851 Suicidal ideations; R45.850 Homicidal ideations; I10 Essential (primary) hypertension; F09 Unspecified mental disorder due to known physiological condition; F32.9 Major depressive disorder, single episode, unspecified; E78.5 Hyperlipidemia, unspecified; G47.33 Obstructive sleep apnea (adult) (pediatric); F41.9 Anxiety disorder, unspecified; F20.0 Paranoid schizophrenia; Y83.0 Surgical operation with transplant of whole organ as the cause of abnormal reaction of the patient, or of later complication, without mention of misadventure at the time of the procedure; I25.10 Atherosclerotic heart disease of native coronary artery without angina pectoris; Z95.5 Presence of coronary angioplasty implant and graft; Z85.46 Personal history of malignant neoplasm of prostate; Z92.3 Personal history of irradiation; Z87.891 Personal history of nicotine dependence; Z85.038 Personal history of other malignant neoplasm of large intestine
CPT/HCPCS: 80048; 80053; 80061; 80156; 80197; 80307; 81001; 83036; 84443; 85025; 85610; J7507; J7512; J7517; Q0163